=== PATIENT | male | born 1995 | race Caucasian/White ===

== ENCOUNTER 2018-02-05 16:44 | Emergency (ER) | payer OTHER ==
[2018-02-05] MEDS: diazePAM 5 MG TAB PO (18:12)
[2018-02-05] MEDS: NAPROXEN 250 MG TAB PO (18:12)
[2018-02-05] MEDS: NORCO, ANEXSIA 5/325MG TABLET (HYDROcodone/ACETAMINOPHEN) PO (18:13)
== END 2018-02-05 19:00 | disposition home or self-care (01) ==
LOC: M ED 16:44
DX: S39.92XA Unspecified injury of lower back, initial encounter (principal); X50.9XXA Other and unspecified overexertion or strenuous movements or postures, initial encounter; Y92.89 Other specified places as the place of occurrence of the external cause; Y93.B3 Activity, free weights
CPT/HCPCS: 99284

== ENCOUNTER 2020-04-06 20:26 | Emergency (ER) | payer OTHER ==
[~2020-04-06 20:26] MED LIST: HYDR-3715 PO; NAPR-837 PO; ROBA500T PO; VENTAER INH
[2020-04-06] MEDS ORDERED: diphenhydrAMINE 25MG CAP As Ordered ONE (23:11)
== END 2020-04-06 23:20 | disposition home or self-care (01) ==
LOC: M ED 20:26
DX: L50.9 Urticaria, unspecified (principal)

== ENCOUNTER 2020-05-22 09:48 | Emergency (ER) | payer OTHER ==
[~2020-05-22] VITALS: Ht 185.4 cm; Wt 112.3 kg
[2020-05-22] MEDS ORDERED: LIDOCAINE 5% (LIDODERM) PATCH TD ONE (10:00)
[2020-05-22] MEDS ORDERED: ACETAMINOPHEN 500 MG TAB PO ONE (10:00)
[2020-05-22] MEDS ORDERED: diazePAM 10MG/2ML SYRINGE (J3360 PER 5MG) IV ONE ×2 (10:00→12:30)
[2020-05-22] MEDS ORDERED: KETOROLAC 30 MG/ML 1ML VIAL IV ONE ×2 (10:00→11:15)
[2020-05-22] MEDS ORDERED: MEDR4PAK PO (12:37)
[2020-05-22] MEDS ORDERED: NAPR-837 PO (12:38)
[2020-05-22] MEDS ORDERED: CYCL5TAB PO (12:38)
[2020-05-22 12:47] VITALS: BP 117/56
[2020-05-22] MEDS ORDERED: **NOTE PATIENT COMMENT** MISC XX SCH (21:00)
== END 2020-05-22 12:49 | disposition home or self-care (01) ==
LOC: M ED 09:48 → EDBD 09:48 → M ED 12:49
DX: M54.5 Low back pain (principal); Z79.899 Other long term (current) drug therapy
CPT/HCPCS: 96374; 96375; 96376; 99284; J1885; J3360

== ENCOUNTER 2020-08-28 14:53 | Emergency (ER) | payer OTHER ==
[~2020-08-28] VITALS: Ht 185.4 cm; Wt 118.1 kg
[~2020-08-28 14:53] MED LIST changes: +CYCL5TAB PO; +MEDR4PAK PO
[2020-08-28 15:12] VITALS: O2SAT 96
--- NOTE | 2020-08-28 15:35 | REP ---
INDICATION: cough COMPARISON: 11/17/2018 TECHNIQUE: PA and lateral. FINDINGS: The mediastinum and cardiac silhouette are normal. Examination is somewhat limited by underpenetration and decreased inspiratory effort raising the possibility of perihilar and right lower lobe atelectasis/early infiltrate. No effusion. No pneumothorax. IMPRESSION: Cannot exclude subtle atelectasis/early infiltrate. <Electronically signed by Tyson Vaughan > 08/28/20 [id number]
[2020-08-28 16:31] LABS: BASO # 0.1 10^3/uL (0.0-0.2); BASO % 0.6 % (0.0-1.0); EOS # 0.5 10^3/uL (0.0-0.5); EOS % 3.8 % (0.0-3.0); HEMATOCRIT 46.5 % (42.0-52.0); HEMOGLOBIN 14.9 g/dl (13.5-17.5); LYMPH # 2.3 10^3/uL (1.5-5.0); MEAN CORPUSCULAR HEMOGLOBIN 26.8 pg (27.0-33.0); MEAN CORPUSCULAR VOLUME 83.6 fl (80.0-96.0); MONO # 0.9 10^3/uL (0.0-0.8); MONO % 6.6 % (0.0-5.0); NEUTROPHILS # 9.5 10^3/uL (1.5-8.5); NEUTROPHILS % 71.4 % (36.0-66.0); PLATELET COUNT, AUTOMATED 345 10^3/uL (150-450); RED BLOOD COUNT 5.56 10^6/uL (4.30-6.10); WHITE BLOOD COUNT 13.3 10^3/uL (4.0-10.0)
[2020-08-28] MEDS ORDERED: ISOVUE-370 76% 100ML VIAL As Ordered ONE (16:40)
--- NOTE | 2020-08-28 17:04 | REP ---
INDICATION: short of breath ro PE COMPARISON: None. TECHNIQUE: Axial contrast enhanced images from the thoracic inlet to the upper abdomen using pulmonary embolus technique with multiplanar re-formations. 75 ml Isovue 370 intravenous contrast material administered without complication. This CT examination was performed using the following dose reduction techniques: Automated exposure control, adjustment of mA and/or kv according to the patient's size, and use of iterative reconstruction technique. FINDINGS: Satisfactory enhancement of the pulmonary vasculature is achieved and no filling defects are identified to suggest pulmonary embolus. Further evaluation of the mediastinum demonstrates normal thoracic aorta, heart and pericardium. The bilateral lung hodge demonstrate very subtle lower lobe ground-glass opacities which may reflect mild early atelectasis. No focal consolidation. No effusion or pneumothorax. Tracheobronchial tree is patent. Mild mediastinal and bilateral hilar reactive adenopathy is suggested along with small amount of residual thymic tissue in the anterior mediastinum. Musculoskeletal structures are intact. Limited upper abdomen demonstrates normal bilateral adrenal glands. IMPRESSION: 1. No evidence for pulmonary embolus. 2. Very subtle lower lobe ground-glass opacities along with mild reactive mediastinal/hilar lymph nodes may represent early atelectasis. No further consolidation or effusion. <Electronically signed by Tyson Vaughan > 08/28/20 [id number]
[2020-08-28] MEDS ORDERED: AMOX500T PO (17:17)
[2020-08-28] MEDS ORDERED: PROV108A INH (17:45)
[2020-08-28] MEDS ORDERED: ALBUTEROL 90 MCG/ACT 8GM HFA INHALER INH STA (17:48)
[2020-08-28] MEDS ORDERED: ALBUTEROL 90 MCG/ACT 8GM HFA INHALER INH PRN (18:00)
[2020-08-28 18:19] VITALS: BP 128/68
--- NOTE | 2020-08-28 18:42 | ECGEPIP ---
[facility] - ED Test Date: 2020-08-28 Pat Name: ANDRES TSAI Department: Room: - Gender: Male [employer] Worker: DONN : [id number] Requested By: BARON Story PA-C Order Number: [id number] Reading MD: Cherelle Gabriel Measurements Intervals [place] Rate: 84 P: 46 DE: 135 QRS: 60 QRSD: 107 T: 45 QT: 368 QTc: 437 Interpretive Statements SINUS RHYTHM No prior Electronically Signed on 08-28-2020 18:42:13 EST by Cherelle Gabriel
== END 2020-08-28 18:22 | disposition home or self-care (01) ==
LOC: M ED 14:53
DX: R06.02 Shortness of breath (principal); F17.220 Nicotine dependence, chewing tobacco, uncomplicated; Z91.048 Other nonmedicinal substance allergy status; Z87.09 Personal history of other diseases of the respiratory system
CPT/HCPCS: 71046; 71275; 80047; 85025; 85379; 93005; 99284; Q9967